=== PATIENT | female | born 1990 | race African-American/Black ===

== ENCOUNTER → 2021-01-02 | Day surgery (SDC) | payer OTHER ==
[~2021-01-02] VITALS: Ht 172.7 cm; Wt 142.9 kg
[~2021-01-02] MED LIST: BUSPAR5 MG PO; DESVENLAFAXINE50 M3 PO; NORCO 5-325 TA1 EACH PO; OMEPRAZOLE40 MG PO; ONDANSETRON ODT8 MG PO
[2021-01-02 09:44] LABS: HCG (URINE) SCREEN NEGATIVE (NEGATIVE)
[2021-01-02 10:22] LABS: HCT 43.8 % (37.0-47.0); HGB 14.4 g/dl (12.5-16.0); MCH 31.2 pg (25.0-31.0); MCHC 32.9 g/dL (32.0-36.0); MPV 12.2 fL (6.0-9.5); RBC 4.61 M/uL (4.20-5.40); RDW 13.2 % (11.5-14.0); WBC 8.4 K/uL (4.0-10.5)
[2021-01-02 11:12] LABS: CREATININE 0.82 mg/dL (0.51-0.95)
[2021-01-02 11:13] LABS: ALBUMIN 3.2 g/dL (3.4-5.0); BILIRUBIN - TOTAL 0.3 mg/dL (0.2-1.0); GLOBULIN (CALCULATION) 3.6 g/dL; POTASSIUM 3.8 mmol/L (3.5-5.1); TOTAL PROTEIN 6.8 g/dL (6.4-8.2)
== END | disposition home or self-care (01) ==
LOC: FAS 09:08
PROVIDERS: Surgery
DX: K80.10 Calculus of gallbladder with chronic cholecystitis without obstruction (principal); E66.01 Morbid (severe) obesity due to excess calories; Z68.43 Body mass index [BMI] 50.0-59.9, adult; F41.8 Other specified anxiety disorders; K21.9 Gastro-esophageal reflux disease without esophagitis; I10 Essential (primary) hypertension; Z87.891 Personal history of nicotine dependence
CPT/HCPCS: 36415; 74300; 80053; 84703; 93005; C1758; J1100; J1170; J1885; J2250; J2405; J2704; J2710; J3010; J7120; Q9967